=== PATIENT | female | born 1995 | race Caucasian/White ===

== ENCOUNTER 2018-02-13 04:17 | Day surgery (SDC) | payer MEDICAID, OTHER ==
[2018-02-13 04:47] LABS: BILIRUBIN,URINE NEGATIVE (NEGATIVE); CLARITY,URINE CLEAR (CLEAR); GLUCOSE, URINE (UA) NEGATIVE (NEGATIVE); KETONES,URINE (UA) TRACE mg/dL (NEGATIVE); LEUKOCYTE ESTERASE, URINE NEGATIVE (NEGATIVE); NITRITE,URINE NEGATIVE (NEGATIVE); OCCULT BLOOD,URINE NEGATIVE (NEGATIVE); PH,URINE 5.5 PH (5.0-7.5); PROTEIN,URINE NEGATIVE (NEGATIVE); UROBILINOGEN,URINE 0.2 (NORMAL) E.U./dL (NORMAL)
[2018-02-13] MEDS ORDERED: SODIUM CHLORIDE 0.9% 1,000 ML IV ONE (04:50)
[2018-02-13 04:51] LABS: BASOPHILS % (AUTO) 0.3 %; EOSINOPHILS % (AUTO) 0.5 %; HGB - HEMOGLOBIN 13.5 g/dL (12.0-16.0); LYMPHOCYTES # (AUTO) 2.5 10^3/uL (1.5-3.5); MEAN CORPUSCULAR HEMOGLOBIN 31.4 pg (27.0-31.0); MEAN CORPUSCULAR HGB CONC 34.6 g/dL (32.0-36.0); MEAN CORPUSCULAR VOLUME 90.8 fL (81.0-99.0); MEAN PLATELET VOLUME 9.1 fL (7.9-10.8); MONOCYTES # (AUTO) 0.5 10^3/uL (0.0-1.0); NEUTROPHILS # (AUTO) 7.4 10^3/uL (1.5-6.6); NEUTROPHILS % (AUTO) 70.2 %; PLT - PLATELET COUNT 159 10^3/uL (130-450); RED BLOOD COUNT 4.28 10^6/uL (4.20-5.40); RED CELL DISTRIBUTION WIDTH 13.6 % (12.0-15.0); WHITE BLOOD COUNT 10.5 x10^3/uL (4.8-10.8)
--- NOTE | 2018-02-13 05:06 | ED Physician Documentation ---
PD HPI ABD PAIN <Sumit Albright - Last Filed: 02/13/18 10:48> - History obtained from History obtained from: Patient, Family - History of Present Illness Timing - onset: Today Timing - details: Gradual onset, Still present Quality: Aching, Sharp Location: RLQ Worsened by: Eating, Position, Palpation Associated symptoms: Fever, Nausea. No: Vomiting, Hematemesis, Diarrhea, Constipation, Dysuria, Hematuria Similar symptoms before: Has not had sx before Recently seen: Not recently seen <Adrian Golden - Last Filed: 02/14/18 00:18> - Stated complaint Stated Complaint: ABDOMINAL PAIN - Chief complaint Chief Complaint: Abd Pain - Additional information Additional information: Patient is a 22 year old female with a history of an ovarian cyst who is presenting to the emergency department for right lower quadrant pain. Patient states that the pain started this evening when she was at work. patient states that she also had nausea, but no vomiting. Patient reports that it is worse with movement and palpation. (Adrian Golden) Review of Systems Constitutional: denies: Fever, Chills Cardiac: denies: Chest pain / pressure GI: reports: Abdominal Pain, Nausea. denies: Vomiting, Constipation, Diarrhea : denies: Dysuria, Frequency, Hesitancy, Hematuria, Discharge Skin: denies: Rash, Lesions Musculoskeletal: denies: Back pain <Adrian Golden - Last Filed: 02/14/18 00:18> PD PAST MEDICAL HISTORY <Sumit Albright - Last Filed: 02/13/18 10:48> - Past Medical History Past Medical History: No - Past Surgical History Past Surgical History: No - Social History Does the pt smoke?: No Smoking Status: Never smoker Does the pt drink ETOH?: No Does the pt have substance abuse?: No - Immunizations Immunizations are current?: No - POLST Patient has POLST: No <Adrian Golden - Last Filed: 02/14/18 00:18> - Present Medications Home Medications: Ambulatory Orders Medication Instructions Recorded Confirmed Bcp 02/13/18 - Allergies Allergies/Adverse Reactions: Allergies Allergy/AdvReac Type Severity Reaction Status Date / Time No Known Drug Allergies Allergy Verified 02/13/18 04:51 PD ED PE NORMAL - Vitals Vital signs reviewed: Yes - General General: Alert and oriented X 3, No acute distress - HEENT HEENT: Atraumatic - Neck Neck: Supple, no meningeal sign - Cardiac Cardiac: RRR - Respiratory Respiratory: No respiratory distress - Abdomen Abdomen: Soft - Derm Derm: Normal color, Warm and dry - Extremities Extremities: No deformity - Neuro Neuro: Alert and oriented X 3 Eye Opening: Spontaneous <Adrian Golden Kim - Last Filed: 02/14/18 00:18> PD ED PE EXPANDED - Abdomen Abdomen: Tender to palpation, RLQ, LLQ. No: Rebound, Guarding <Adrian Golden Kim - Last Filed: 02/14/18 00:18> Results - Rads (name of study) ultrasound pelvis Radiology: Prelim report reviewed (Impression: Normal pelvic ultrasound for age and menstrual status. Tiny age-appropriate follicular cysts both ovaries. No solid mass, pathologic cyst, free fluid or other demonstrate a cause for the patient's symptoms.), EMP read indepedently, See rad report CT abd/pel with Radiology: Prelim report reviewed (Impression: Findings consistent with acute appendicitis with moderate randy-appendical edema. No substantial free fluid, free air or abscess. Remainder of the abdomen pelvis unremarkable.), EMP read indepedently, See rad report <Sumit Albright - Last Filed: 02/13/18 10:48> - Vitals Vitals: Vital Signs - 24 hr 02/13/18 02/13/18 02/13/18 04:20 06:00 06:29 Temperature 37.3 C 37.2 C Heart Rate 101 H 80 79 Respiratory 16 16 20 Rate Blood Pressure 131/86 H 116/70 120/73 Blood Pressure [Left Brachial artery] O2 Saturation 97 100 100 02/13/18 02/13/18 02/13/18 08:52 12:00 13:23 Temperature 36.9 C Heart Rate 73 78 Respiratory 17 15 Rate Blood Pressure 111/62 112/74 Blood Pressure [Left Brachial artery] O2 Saturation 100 98 100 02/13/18 02/13/18 02/13/18 13:28 13:33 13:38 Temperature Heart Rate Respiratory Rate Blood Pressure Blood Pressure [Left Brachial artery] O2 Saturation 100 100 100 02/13/18 02/13/18 02/13/18 13:43 13:48 13:53 Temperature Heart Rate Respiratory Rate Blood Pressure Blood Pressure [Left Brachial artery] O2 Saturation 100 100 100 02/13/18 02/13/18 02/13/18 13:58 14:00 14:15 Temperature 36.5 C 36.5 C Heart Rate 106 H 106 H Respiratory 16 14 Rate Blood Pressure Blood Pressure 129/71 128/80 [Left Brachial artery] O2 Saturation 100 100 98 02/13/18 02/13/18 14:30 15:07 Temperature 36.3 C L Heart Rate 100 80 Respiratory 16 16 Rate Blood Pressure Blood Pressure 123/80 112/70 [Left Brachial artery] O2 Saturation 100 97 Oxygen O2 Source Room air - Labs Labs: Laboratory Tests 02/13/18 02/13/18 02/13/18 04:35 04:40 04:40 WBC 10.5 RBC 4.28 Hgb 13.5 Hct 38.9 MCV 90.8 MCH 31.4 H MCHC 34.6 RDW 13.6 Plt Count 159 MPV 9.1 Neut # 7.4 H Lymph # 2.5 [place] # 0.5 Eos # 0.0 Baso # 0.0 Absolute Nucleated RBC 0.01 Nucleated RBC % 0.0 Sodium 137 Potassium 3.4 L Chloride 104 Carbon Dioxide 23 Anion Gap 10.0 BUN 8 Creatinine 0.6 Estimated GFR (MDRD) 125 Glucose 104 H Calcium 9.4 Total Bilirubin 0.8 AST 20 ALT 20 Alkaline Phosphatase 36 L Total Protein 7.9 Albumin 4.6 Globulin 3.3 Albumin/Globulin Ratio 1.4 Lipase 18 L Serum HCG, Qual Urine Color YELLOW Urine Clarity CLEAR Urine pH 5.5 Ur Specific [place] >=1.030 H Urine Protein NEGATIVE Urine Glucose (UA) NEGATIVE Urine Ketones TRACE Urine Occult Blood NEGATIVE Urine Nitrite NEGATIVE Urine Bilirubin NEGATIVE Urine Urobilinogen 0.2 (NORMAL) Ur Leukocyte Esterase NEGATIVE Ur Microscopic Review NOT INDICATED Urine Culture Comments NOT INDICATED 02/13/18 04:40 WBC RBC Hgb Hct MCV MCH MCHC RDW Plt Count MPV Neut # Lymph # [place] # Eos # Baso # Absolute Nucleated RBC Nucleated RBC % Sodium Potassium Chloride Carbon Dioxide Anion Gap BUN Creatinine Estimated GFR (MDRD) Glucose Calcium Total Bilirubin AST ALT Alkaline Phosphatase Total Protein Albumin Globulin Albumin/Globulin Ratio Lipase Serum HCG, Qual NEGATIVE Urine Color Urine Clarity Urine pH Ur Specific [place] Urine Protein Urine Glucose (UA) Urine Ketones Urine Occult Blood Urine Nitrite Urine Bilirubin Urine Urobilinogen Ur Leukocyte Esterase Ur Microscopic Review Urine Culture Comments PD MEDICAL DECISION MAKING <Sumit Albright - Last Filed: 02/13/18 10:48> - ED course Complexity details: reviewed old records, reviewed results, re-evaluated patient , considered differential, d/w patient <Adrian Golden - Last Filed: 02/14/18 00:18> - ED course ED course: 22-year-old female whose care is turned over to me at shift change from Dr. Golden has right lower quadrant abdominal pain that has progressed since last night. On my examination the patient has persistent right lower quadrant tenderness with some guarding and some referred tenderness to the right lower quadrant I did take the bedside ultrasound exam in the gallbladder is she had some tenderness in the right upper quadrant as well this revealed a normal- appearing gallbladder which did not appear to be sonographically tender. The patient is thin and a CT scan of the abdomen pelvis with oral contrast is obtained which demonstrates acute appendicitis. (Sumit Albright) Patient was seen and examined at bedside. urine was collected. IV access was gained and labs were drawn. patient was not nor did she have a leukocytosis. due to the history of ovarian cyst ultrasound was ordered. Patient was treated with toradol for pain. Patient was signed over to Dr. Albright pending imaging, re-evaluation and disposition. (Adrian Golden) Departure <Sumit Albright - Last Filed: 02/13/18 10:48> <Adrian Golden - Last Filed: 02/14/18 00:18> - Departure Disposition: ED Transfer to [facility] Clinical Impression: Appendicitis Qualifiers: Appendicitis type: acute appendicitis Acute appendicitis type: with localized peritonitis Qualified Code(s): K35.3 - Acute appendicitis with localized peritonitis Discharge Date/Time: 02/13/18 12:05
[2018-02-13 05:16] LABS: ALBUMIN 4.6 g/dL (3.2-5.5); ALBUMIN/GLOBULIN RATIO 1.4 (1.0-2.2); BILIRUBIN,TOTAL 0.8 mg/dL (0.2-1.0); CALCIUM 9.4 mg/dL (8.5-10.3); CREATININE 0.6 mg/dL (0.4-1.0); TOTAL PROTEIN 7.9 g/dL (6.7-8.2)
[2018-02-13 05:25] LABS: HCG,QUALITATIVE BLOOD NEGATIVE
[2018-02-13] MEDS ORDERED: KETOROLAC 60 MG/2 ML VIAL IVP STA (06:01)
--- NOTE | 2018-02-13 07:57 | Ultrasound Preliminary Report ---
Exam: US ABDOMEN LIMITED IMPRESSION: Appendix not identified. No secondary signs of appendicitis or other abnormality noted. [facility] SITE ID: [id number]
--- NOTE | 2018-02-13 08:01 | Ultrasound Preliminary Report ---
Exam: US PELVIC W/TRANSVAG+DOPPLER LTD IMPRESSION: Normal pelvic ultrasound for age and menstrual status. Tiny age-appropriate follicle cyst s both ovaries. No solid mass, pathologic cyst, free fluid or other demonstrated cause for the patien t's symptoms. [facility] SITE ID: [id number]
--- NOTE | 2018-02-13 08:06 | Ultrasound Report ---
EXAM: LIMITED ABDOMINAL ULTRASOUND, RIGHT LOWER QUADRANT, FOR APPENDIX EXAM DATE: 02/13/2018 07:04 AM. CLINICAL HISTORY: Right lower quadrant pain, nausea. COMPARISON: None. TECHNIQUE: Real-time scanning was performed of the right lower quadrant with static images obtained o n an emergent basis. FINDINGS: APPENDIX:Appendix not identified. COMPRESSION TOLERATED: Marked. ASSOCIATED FINDINGS: Lymph Nodes Seen: No Free Fluid/Complex Fluid Seen: No Thickened Bowel Wall Seen: No Other: None. IMPRESSION: Appendix not identified. No secondary signs of appendicitis or other abnormality noted. [facility] Referring Provider Line: [phone] SITE ID: [id number]
--- NOTE | 2018-02-13 08:06 | Ultrasound Report ---
EXAM: PELVIC ULTRASOUND WITH TRANSVAGINAL SCANNING EXAM DATE: 02/13/2018 07:13 AM. CLINICAL HISTORY: Right lower quadrant pain in a 22-year-old female with history of ovarian cysts. COMPARISON: None. TECHNIQUE: Realtime transabdominal pelvic scan performed to identify the uterus and adnexa and as an overview of other pelvic structures, followed by transvaginal scan to provide greater detail of the u terus and adnexa, with static image documentation. FINDINGS: Transabdominal scanning technically limited due to lack of bladder content. Uterus: 9.1 x 3.3 x 5.0 cm, volume 78 cc. Anteverted position. Normal overall size and echotexture. Masses: None. Endometrium: 1.8 mm. Normal. Cervix: Unremarkable. Right Ovary: 2.0 x 0.9 x 1.3 cm, volume 1.2 cc. Normal echotexture and blood flow. A few tiny age-kasey ropriate follicles. Left Ovary: 1.6 x 0.84 x 1.2 cm, volume 0.84 cc. Normal echotexture and blood flow. A few tiny age-ap propriate follicles. Free Fluid: None. Other: None. IMPRESSION: Normal pelvic ultrasound for age and menstrual status. Tiny age-appropriate follicle cyst s both ovaries. No solid mass, pathologic cyst, free fluid or other demonstrated cause for the patien t's symptoms. [facility] Referring Provider Line: [phone] SITE ID: [id number]
[2018-02-13] MEDS ORDERED: IOPAMIDOL-300 50 ML VIAL PO ONE (08:35)
[2018-02-13] MEDS ORDERED: IOPAMIDOL-300 100 ML VIAL IVP ONE (08:35)
[2018-02-13] MEDS ORDERED: IOPAMIDOL-300 100 ML VIAL ONE (08:43)
[2018-02-13] MEDS ORDERED: IOPAMIDOL-300 50 ML VIAL ONE (08:43)
--- NOTE | 2018-02-13 10:35 | CT Preliminary Report ---
Exam: CT ABDOMEN/PELVIS W/ IMPRESSION: Findings consistent with acute appendicitis with moderate periappendiceal edema. No subst antial free fluid, free air or abscess. Remainder of the abdomen and pelvis unremarkable. CRITICAL RESULTS discussed directly with attending emergency physician Sumit Albright M.D. by this ra diologist at 1032 hrs. [facility] The above findings were discussed with Sumit Albright by Dr. Kash Valencia at 10:33 hrs on 02/13/18. SITE ID: [id number]
--- NOTE | 2018-02-13 10:40 | CT Report ---
EXAM: CT ABDOMEN AND PELVIS WITH CONTRAST EXAM DATE: 02/13/2018 09:47 AM. CLINICAL HISTORY: RLQ (right lower quadrant) pain and tenderness in a 22-year-old female. COMPARISONS: Right lower quadrant abdominal ultrasound for appendix and pelvic ultrasound performed o n the same patient earlier today. TECHNIQUE: Emergent helical CT imaging was performed through the abdomen and pelvis. IV contrast: 100 mL Isovue-300. Enteric contrast: Yes. Reconstructions: Coronal and sagittal. In accordance with CT protocol optimization, one or more of the following dose reduction techniques w ere utilized for this exam: automated exposure control, adjustment of mA and/or KV based on patient s ize, or use of iterative reconstructive technique. FINDINGS: Lung Bases: Unremarkable. Liver: Normal. No masses. Gallbladder/Bile Ducts: No gallstones, wall thickening or dilated bile ducts. Spleen: Normal. Pancreas: Normal. Adrenal Glands: Normal. Kidneys: Normal. No masses, nephrolithiasis, hydroureter or hydronephrosis. Peritoneal Cavity/Bowel: Edematous retrocecal appendix right lower quadrant with moderate periappendi ceal edema. No free fluid, free air or abscess. Remainder of the bowel unremarkable. No adenopathy. Pelvic Organs: Normal. The bladder and visualized pelvic organs are within normal limits. Vasculature: No aneurysms or other significant abnormality. Bones: Normal. Other: None. IMPRESSION: Findings consistent with acute appendicitis with moderate periappendiceal edema. No subst antial free fluid, free air or abscess. Remainder of the abdomen and pelvis unremarkable. CRITICAL RESULTS discussed directly with attending emergency physician, Sumit Albright MD, by this ra diologist at 1032 hrs. [facility] Referring Provider Line: [phone] SITE ID: [id number]
[2018-02-13] MEDS ORDERED: ONDANSETRON 4 MG/2 ML VIAL IVP STA (11:30)
[2018-02-13] MEDS ORDERED: BUPIVACAINE 0.5%-EPI 1:200000 PF 30 ML VIAL ONE (11:53)
[2018-02-13] MEDS ORDERED: cefOXitin 2 GM in SODIUM CHLORIDE 0.9% MINIBAG 100 ML IV STA (11:59)
[2018-02-13] MEDS ORDERED: MIDAZOLAM 2 MG/2 ML VIAL IVP ONE (12:00)
[2018-02-13] MEDS ORDERED: PROPOFOL 200 MG/20 ML VIAL IVP ONE (12:00)
[2018-02-13] MEDS ORDERED: fentaNYL 100 MCG/2 ML VIAL IVP ONE (12:00)
[2018-02-13] MEDS ORDERED: LIDOCAINE-MPF 2% 5 ML VIAL IM ONE (12:00)
[2018-02-13] MEDS ORDERED: GLYCOPYRROLATE 1 MG/5 ML VIAL IVP ONE (12:00)
[2018-02-13] MEDS ORDERED: DEXAMETHASONE 4 MG/ML VIAL IVP ONE (12:00)
[2018-02-13] MEDS ORDERED: ONDANSETRON 4 MG/2 ML VIAL IVP ONE (12:00)
[2018-02-13] MEDS ORDERED: SUCCINYLCHOLINE 200 MG/10 ML VIAL IVP ONE (12:00)
[2018-02-13] MEDS ORDERED: SODIUM CHLORIDE 0.9% MINIBAG 100 ML IV ONE (12:12)
[2018-02-13] MEDS ORDERED: BUPIVACAINE 0.5%-EPI 1:200000 PF 30 ML VIAL SUBQ ONE ×2 (12:36)
[2018-02-13] MEDS ORDERED: LACTATED RINGERS 1,000 ML IV ONE (12:37)
[2018-02-13] MEDS ORDERED: HYDROcod/ACETAM 5/325 MG TABLET ONE (14:44)
[2018-02-13] MEDS ORDERED: ONDANSETRON 4 MG/2 ML VIAL ONE (15:04)
[2018-02-13 15:08] VITALS: BP 112/70
--- NOTE | 2018-02-13 19:31 | OPERATIVE REPORT ---
DATE OF SERVICE: 02/13/2018 Physician: Tiburcio Dean MD PREOPERATIVE DIAGNOSIS: Acute appendicitis. POSTOPERATIVE DIAGNOSIS: Acute appendicitis. PROCEDURE PERFORMED: Laparoscopic appendectomy. OPERATING SURGEON: Tiburcio Dean MD ANESTHESIA: General. INDICATIONS FOR SURGERY: Patient is a 22-year-old female who yesterday evening started to have pain in the lower abdominal area. Because of the pain, she came into the emergency room to be evaluated. She had a CT scan of the abdomen and pelvis which showed acute appendicitis. FINDINGS AT SURGERY: Patient had a mildly inflamed appendix that was nonperforated. DESCRIPTION OF THE PROCEDURE: After informed consent was obtained, the patient was taken to the operating room and placed in the supine position. General anesthesia was administered. Patient's abdomen was then prepped and draped in the usual sterile fashion. Prior to making any abdominal incision, the skin was injected with local anesthesia. An incision was then made in the center of the umbilicus. A 5-mm Optiview trocar was inserted through the incision, through the fascia, and into the abdominal cavity under direct vision. The abdomen was then insufflated. Looking inside, no injuries were noted. A 12-mm port was placed in the left lower quadrant and a second 5-mm port was placed in the right lower quadrant under direct vision. Patient had mildly inflamed acute appendicitis being present. An opening was then made in the mesentery of the appendix at its base. An Endo-EVAN was then placed across the base of the appendix, stapling and dividing it. The appendiceal mesentery was then divided using electrocautery. The appendix was located retroperitoneal, and so care was taken to avoid any surrounding structures. Appendix was then placed in an Endobag and removed through the left lower quadrant port. A gauze was then placed intraabdominally and used to check for any bleeding. No bleeding was noted. With the gauze then being removed, the abdomen was then desufflated with no bleeding noted at the port sites. The umbilical and left lower quadrant incisions were closed. The fascia was closed using 2-0 Vicryl sutures. Skin incisions were closed using 4-0 Monocryl subcuticular stitch. Dermabond was then applied. Patient was then awakened, extubated, and taken from the operating room in a stable condition. ESTIMATED BLOOD LOSS: A milliliter. COMPLICATIONS: None. CONDITION OF THE PATIENT AT THE END OF THE PROCEDURE: Stable. SPECIMENS: Appendix. DRAINS AND PACKS: None. CLASSIFICATION OF THE WOUND: Clean, contaminated. TD: 02/13/2018 18:37
== END 2018-02-13 11:31 | disposition home or self-care (01) ==
LOC: ED 04:17 → SDS 11:30
PROVIDERS: ATTEND Surgery
PROC: 0DTJ4ZZ Resection of Appendix, Percutaneous Endoscopic Approach (ICD-10-PCS; principal; 2018-02-13 12:00)
DX: K35.80 Unspecified acute appendicitis (principal)
CPT/HCPCS: 36415; 44970; 74177; 76705; 76830; 76856; 80053; 81003; 83690; 84703; 85025; 93976; 96361; 96374; 96375; 99283; 99284; A9270; J0330; J7120; Q9967; 81001; 87086; 88304

== ENCOUNTER 2018-07-08 08:00 | Outpatient (CLI) | payer OTHER | END 2018-07-08 08:01 | disposition home or self-care (01) | LOC: LAB.R 08:00 | PROVIDERS: ATTEND Nurse Practitioner | DX: N90.7 Vulvar cyst (principal); N89.8 Other specified noninflammatory disorders of vagina | CPT/HCPCS: 81599; 86695; 86696; 86803; 87389; 87491; 87591 ==

== ENCOUNTER 2018-07-11 08:00 | Outpatient (CLI) | payer OTHER ==
[2018-07-12 12:42] LABS: HEPATITIS C ANTIBODY NON-REACTIVE (NON-REACTIVE)
[2018-07-12 14:51] LABS: HIV AG/AB 4TH GEN NON-REACTIVE (NON-REACTIVE)
[2018-07-13 10:42] LABS: HSV 1 IGG TYPE SPECIFIC AB <0.90 index; HSV 2 IGG TYPE SPECIFIC AB <0.90 index
== END 2018-07-11 08:01 | disposition home or self-care (01) ==
LOC: LAB.N 08:00
PROVIDERS: ATTEND Nurse Practitioner
DX: N90.7 Vulvar cyst (principal); N89.8 Other specified noninflammatory disorders of vagina
CPT/HCPCS: 36415; 81599; 86592; 86695; 86696; 86803; 87389; 87491; 87591

== ENCOUNTER 2018-08-23 10:55 | Outpatient (CLI) | payer OTHER ==
[2018-08-24 12:42] LABS: HEPATITIS C ANTIBODY NON-REACTIVE (NON-REACTIVE)
[2018-08-24 14:40] LABS: HIV AG/AB 4TH GEN NON-REACTIVE (NON-REACTIVE)
[2018-08-27 07:47] LABS: HSV 1 IGG TYPE SPECIFIC AB <0.90 index; HSV 2 IGG TYPE SPECIFIC AB <0.90 index
== END 2018-08-23 10:56 | disposition home or self-care (01) ==
LOC: LAB.N 10:55
PROVIDERS: ATTEND Nurse Practitioner
DX: Z20.2 Contact with and (suspected) exposure to infections with a predominantly sexual mode of transmission (principal)
CPT/HCPCS: 36415; 81599; 86592; 86695; 86696; 86803; 87389; 87491; 87591